=== PATIENT | male | born 1990 | race Hispanic/Latino ===

== ENCOUNTER 2016-03-29 23:26 | Emergency (ER) | payer OTHER, MEDICAID ==
[2016-03-30] MEDS ORDERED: TDaP 0.5 ML VIAL IM.VACC ONE (02:33)
== END 2016-03-30 03:07 | disposition home or self-care (01) ==
LOC: ER 23:26
DX: S61.012A Laceration without foreign body of left thumb without damage to nail, initial encounter (principal); W26.0XXA Contact with knife, initial encounter; Y93.89 Activity, other specified; Y92.69 Other specified industrial and construction area as the place of occurrence of the external cause; F17.210 Nicotine dependence, cigarettes, uncomplicated
CPT/HCPCS: 90471